=== PATIENT | male | born 1935 | race Caucasian/White ===

== ENCOUNTER 2018-01-20 12:25 | Inpatient (IN) | payer MEDICARE, OTHER ==
[~2018-01-20] VITALS: Ht 182.9 cm; Wt 106.6 kg
[2018-01-20] MEDS ORDERED: MAGNESIUM HYDROXIDE 30 ML UDC PO PRN (16:00)
[2018-01-20] MEDS ORDERED: MAG HYDROX/AL HYDROX/SIMETH 30 ML UDC PO PRN (16:00)
[2018-01-20] MEDS ORDERED: LORAZEPAM 0.5 MG TABLET PO PRN (16:00)
[2018-01-20] MEDS ORDERED: ACETAMINOPHEN 325 MG TABLET PO PRN (16:00)
--- NOTE | 2018-01-20 16:00 | NUR ---
GPS/RN RECEIVED PT DIRECT ADMIT ON 5149 FOR SUICIDAL ATTEMPT (OVERDOSED ON AMBIEN) FROM [facility] VIA AMBULANCE. ADMITTING ORDERS FROM [facility] GARCES RECEIVED AND CARRIED OUT. CONTRABAND REMOVED. PT AMBULATORY AND VOICED NO SI AT THE TIME OF ADMISSION. FAMILY NOTIFIED OF ADMISSION. PICTURES TAKEN(BOTH ARMS) PT REFUSED FULL BODY ASSESSMENT AND TO SIGN ADMITTING PAPERWORK. PER PT AND FAMILY HE IS ON METFORMIN ONLY AND NOT ON INSULIN SLIDING SCALE AT HOME.
[2018-01-20 16:16] VITALS: BP 136/63
[2018-01-20] MEDS ORDERED: LOVA40TA2 PO (16:26)
[2018-01-20] MEDS ORDERED: ASPI-1169 PO (16:26)
[2018-01-20] MEDS ORDERED: METF-440 PO (16:26)
[2018-01-20] MEDS ORDERED: OMEG-178 PO (16:26)
[2018-01-20] MEDS ORDERED: LISI-607 PO (16:26)
[2018-01-20] MEDS ORDERED: ZOLP5TAB8 PO (16:26)
[2018-01-20] MEDS ORDERED: CALC-7 PO (16:26)
[2018-01-20] MEDS ORDERED: ACET-868 PO (16:47)
--- NOTE | 2018-01-20 16:49 | NUR ---
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 PRIMARY NURSE MADE AWARE.
--- NOTE | 2018-01-20 17:34 | NUR ---
RN-CO: Notified Jaclyn Lovett [employer] WIRELESS SALES CONSULTANT to reconcile home medications.
[2018-01-20 20:00] VITALS: BP 127/66
[2018-01-20] MEDS: TEMAZEPAM 7.5 MG CAPSULE PO PRN (22:39)
[2018-01-21 07:15] LABS: ALANINE AMINOTRANSFERASE 45 U/L (12-78); ALBUMIN 3.4 g/dL (3.4-5.0); ALKALINE PHOSPHATASE 45 U/L (46-116); ASPARTATE AMINOTRANSFERASE 35 U/L (15-37); BILIRUBIN,TOTAL 0.8 mg/dL (0.2-1.0); CALCIUM, SERUM 8.7 mg/dL (8.5-10.1); CARBON DIOXIDE 27 mmol/L (21-32); CHLORIDE 102 mmol/L (98-107); CREATININE 0.9 mg/dL (0.6-1.3); GLUCOSE 173 mg/dL (74-106); SODIUM SERUM 137 mmol/L (136-145); TOTAL PROTEIN, SERUM 7.3 g/dL (6.4-8.2); UREA NITROGEN, BLOOD 12 mg/dL (7-18)
[2018-01-21 07:22] LABS: CHOLESTEROL 147 mg/dL (<200); HDL CHOLESTEROL 38 mg/dL (40-60); LDL 83 mg/dL (0-99); TRIGLYCERIDES 223 mg/dL (30-150)
[2018-01-21 08:00] VITALS: BP 130/71
[2018-01-21] MEDS: DULOXETINE HCL 30 MG CAPSULE.DR PO SCH (10:28)
--- NOTE | 2018-01-21 12:00 | NUR ---
GPS/RN DR CEE SEEN THE PT AND REMINDED TO RECONCILE THE MEDS
[2018-01-21] MEDS ORDERED: ACETAMINOPHEN 325 MG TABLET PO PRN (13:00)
[2018-01-21 16:01] VITALS: BP 134/69
[2018-01-21] MEDS: METFORMIN 500 MG TABLET PO SCH (17:25)
[2018-01-21] MEDS: LISINOPRIL (5MG) 5 MG TABLET PO SCH (17:26)
--- NOTE | 2018-01-21 19:45 | NUR ---
[place]) FOR LAB RESULTS HEMOGLOBIN A1C 7.1. ORDERED MILD SLIDING SCALE AND CONTINUE METFORMIN 500MG BID. NOTED AND CARRIED OUT. WILL CONTINUE TO MONITOR. Addendum: 01/21/18 at 1948 by LEXA CASTRO RN ANK[place]
[2018-01-21 20:00] VITALS: BP 138/97
[2018-01-21] MEDS ORDERED: DEXTROSE 50%-WATER 50 ML DISP.SYRIN IV PRN (20:00)
[2018-01-21] MEDS: TEMAZEPAM 7.5 MG CAPSULE PO PRN (21:41)
[2018-01-21] MEDS: ATORVASTATIN 40 MG TABLET PO SCH (21:41)
[2018-01-21] MEDS: BLOOD SUGAR DIAGNOSTIC 1 EACH STRIP IN SCH (21:44)
[2018-01-22] MEDS: BLOOD SUGAR DIAGNOSTIC 1 EACH STRIP IN SCH ×4 (08:09→21:57)
[2018-01-22] MEDS: INSULIN REGULAR, HUMAN 100 UNIT/ML 3 ML VIAL SQ PRN ×4 (08:20→21:58)
[2018-01-22] MEDS: CALCIUM CARB 250MG /VITAMIN D 1 UDTAB PO SCH (08:41)
[2018-01-22] MEDS: ASPIRIN 81 MG TAB.CHEW PO SCH (08:41)
[2018-01-22] MEDS: METFORMIN 500 MG TABLET PO SCH ×2 (08:41→17:44)
[2018-01-22] MEDS: DULOXETINE HCL 30 MG CAPSULE.DR PO SCH (08:41)
[2018-01-22 09:02] VITALS: BP 139/78
--- NOTE | 2018-01-22 14:00 | NUR ---
RN NOTES PATIENT CONFUSED, IRRITABLE, WONDERS SURROUNDING, LOOKING FAMILY MEMBERS. OFFERED ATIVAN BUT BU PATIENT REFUSED MEDICATION, AT THIS TIME TRYING TO EAT LUNCH. CONTINUED MONITORING FOR SAFETY , AND BEHAVIOR.
[2018-01-22 15:36] VITALS: BP 130/79
[2018-01-22] MEDS: LISINOPRIL (5MG) 5 MG TABLET PO SCH (17:44)
[2018-01-22 20:00] VITALS: BP 151/77
[2018-01-22] MEDS: ATORVASTATIN 40 MG TABLET PO SCH (21:17)
[2018-01-23 08:00] VITALS: BP 128/68
--- NOTE | 2018-01-23 08:00 | NUR ---
GPS/RN BS 191, 3 UNITS REGULAR INSULIN GIVEN.
[2018-01-23] MEDS: ASPIRIN 81 MG TAB.CHEW PO SCH (08:09)
[2018-01-23] MEDS: CALCIUM CARB 250MG /VITAMIN D 1 UDTAB PO SCH (08:09)
[2018-01-23] MEDS: DULOXETINE HCL 30 MG CAPSULE.DR PO SCH (08:09)
[2018-01-23] MEDS: METFORMIN 500 MG TABLET PO SCH ×2 (08:09→16:00)
[2018-01-23] MEDS: INSULIN REGULAR, HUMAN 100 UNIT/ML 3 ML VIAL SQ PRN ×2 (08:10→18:41)
[2018-01-23] MEDS: BLOOD SUGAR DIAGNOSTIC 1 EACH STRIP IN SCH ×4 (08:11→21:45)
--- NOTE | 2018-01-23 12:42 | NUR ---
Initial Discharge Plan: Pt resides with his , Ora (cell # [phone]) in a mobile home, [address] [place] [address]. Pts contact telephone # is . Upon discharge pt would like to return home. SW contacted pts , Ora who is in agreement with pt returning home. Pts reported that upon discharge she and pt would return home in the [facility]. SW will follow up to ensure pt is safely and adequately discharged.
[2018-01-23] MEDS: LISINOPRIL (5MG) 5 MG TABLET PO SCH (16:58)
--- NOTE | 2018-01-23 18:00 | NUR ---
GPS/RN BS 152 , 2 UNITS REGULAR INSULIN GIVEN.
[2018-01-23 20:14] VITALS: BP 144/75
[2018-01-23] MEDS: ATORVASTATIN 40 MG TABLET PO SCH (21:13)
[2018-01-23] MEDS: TEMAZEPAM 7.5 MG CAPSULE PO PRN (21:57)
[2018-01-24 07:59] VITALS: BP 146/80
[2018-01-24] MEDS: METFORMIN 500 MG TABLET PO SCH ×2 (08:24→16:42)
[2018-01-24] MEDS: BLOOD SUGAR DIAGNOSTIC 1 EACH STRIP IN SCH ×4 (08:24→21:14)
[2018-01-24] MEDS: CALCIUM CARB 250MG /VITAMIN D 1 UDTAB PO SCH (08:24)
[2018-01-24] MEDS: DULOXETINE HCL 30 MG CAPSULE.DR PO SCH (08:24)
[2018-01-24] MEDS: ASPIRIN 81 MG TAB.CHEW PO SCH (08:24)
[2018-01-24] MEDS: INSULIN REGULAR, HUMAN 100 UNIT/ML 3 ML VIAL SQ PRN ×2 (09:54→21:16)
--- NOTE | 2018-01-24 12:00 | NUR ---
GPS/RN PATIENT REFUSED BS X 3, EXPLAINED RISKS AND BENEFITS, WILL CONTINUE TO MONITOR . Addendum: 01/24/18 at 1830 by ALEX BARBOSA RN REFUSED BS CHECK
--- NOTE | 2018-01-24 14:22 | NUR ---
LOBITO contacted pts Oar for discharge planning purposes. LOBITO was unable to speak to pts , however a detailed message was left asking for a call back. LOBITO will follow up.
[2018-01-24 16:21] VITALS: BP 130/80
[2018-01-24] MEDS: LISINOPRIL (5MG) 5 MG TABLET PO SCH (17:03)
--- NOTE | 2018-01-24 18:27 | NUR ---
GPS/RN BS 122, NO COVERAGE NEEDED.
[2018-01-24 20:18] VITALS: BP 134/76
[2018-01-24] MEDS: ATORVASTATIN 40 MG TABLET PO SCH (21:09)
[2018-01-24] MEDS: TEMAZEPAM 7.5 MG CAPSULE PO PRN (21:49)
[2018-01-25 08:12] VITALS: BP 130/82
[2018-01-25] MEDS: ASPIRIN 81 MG TAB.CHEW PO SCH (08:33)
[2018-01-25] MEDS: CALCIUM CARB 250MG /VITAMIN D 1 UDTAB PO SCH (08:33)
[2018-01-25] MEDS: METFORMIN 500 MG TABLET PO SCH (08:33)
[2018-01-25] MEDS: INSULIN REGULAR, HUMAN 100 UNIT/ML 3 ML VIAL SQ PRN (08:36)
[2018-01-25] MEDS: BLOOD SUGAR DIAGNOSTIC 1 EACH STRIP IN SCH (08:41)
[2018-01-25] MEDS ORDERED: DULOXETINE HCL 20 MG CAPSULE.DR PO SCH (09:00)
--- NOTE | 2018-01-25 11:00 | NUR ---
REFUSED DISCHARGE PHOTOS.
--- NOTE | 2018-01-25 11:20 | NUR ---
PT. SIGNED ALL PAPERS INCLUDING BELONGING SHEET.DENIES SUICIDAL IDEATION OR HOMICIDAL IDEATION,DTR. HERE TO THERAPIST PHYSICAL PT.WILL TRANSPORT HOME TO BE WITH .HAS RX PER DR. GARCES.INSTRUCTED DTR. ON SAME.HOME HEALTH TO FOLLOW UP AND PT. TO FOLLOW UP WITH MENTAL HEALTH SERVICES.TAKEN TO LOBBY AMBULATING ACCOMPANIED BY FAMILY AND TELESCOPE REPAIRER.
--- NOTE | 2018-01-25 11:56 | NUR ---
LOBITO contacted [facility] (home health care) services for a referral in the [facility]. SW faxed appropriate paperwork (home health care referral and face sheet) to on this date.
--- NOTE | 2018-01-25 16:35 | NUR ---
Discharge Note: Patient will discharge home, [address] [place] [address] via private transportation at 11:00 am. Pts daughter, Lesvia Ludwig will pick pt up (transportation arranged by pts , Ora. Pt and pts family are in agreement with discharge plan. Pt was provided with the following referrals, Psychiatrist, [facility] [facility]; [address] [place] [address], and Hand Singer, Dr. Gonzalez, [address] [facility] [address]; . SW spoke to pt and his who were in agreement with following up with a psychiatrist, "immediately" to ensure pt "gets better."
--- NOTE | 2018-01-31 13:33 | NUR ---
LOBITO received a call from Monica from [facility] requesting additional information for this pt (i.e. H&P and med list). LOBITO faxed docs to per request.
== END 2018-01-25 17:06 | disposition home or self-care (01) | DRG 885 ==
LOC: GPS 15:43
PROVIDERS: ADMIT Psychiatry & Neurology Psychiatry; ATTEND Nurse Practitioner Acute Care
DX: F32.2 Major depressive disorder, single episode, severe without psychotic features (principal); I10 Essential (primary) hypertension; E78.5 Hyperlipidemia, unspecified; E11.9 Type 2 diabetes mellitus without complications; E78.1 Pure hyperglyceridemia; Z96.651 Presence of right artificial knee joint
CPT/HCPCS: 36415; 80053-TC; 80061-TC; 82962-TC; 87081-TC; J1815